=== PATIENT | male | born 1955 | race Caucasian/White ===

== ENCOUNTER 2021-01-03 08:37 | Emergency (ER) | payer MEDICARE, OTHER ==
[2021-01-03 09:34] LABS: HEMOGLOBIN 15.8 gm/dl (14.0-17.5); RED BLOOD COUNT 5.08 M/UL (4.20-5.50); WHITE BLOOD COUNT 8.2 K/UL (4.5-11.0)
== END 2021-01-03 12:12 | disposition home or self-care (01) ==
LOC: ER1 08:37
PROVIDERS: Preventive Medicine Occupational Medicine
DX: E04.1 Nontoxic single thyroid nodule (principal); I10 Essential (primary) hypertension; E11.9 Type 2 diabetes mellitus without complications
CPT/HCPCS: 70491; 71045; 80053; 84439; 84443; 85025; 85652; 86140; 99284; Q9967

== ENCOUNTER → 2021-02-27 | Outpatient (CLI) | payer MEDICARE, OTHER ==
[2021-02-27 09:32] LABS: HEMOGLOBIN 14.7 gm/dl (14.0-17.5); RED BLOOD COUNT 4.68 M/UL (4.20-5.50); WHITE BLOOD COUNT 7.3 K/UL (4.5-11.0)
== END ==
LOC: US 09:00
PROVIDERS: Otolaryngology
DX: D44.0 Neoplasm of uncertain behavior of thyroid gland (principal)
CPT/HCPCS: 36415; 85027; 85610; 85730

== ENCOUNTER → 2021-06-20 | Outpatient (CLI) | payer MEDICARE, OTHER | LOC: KOH-I 06-13 13:00 | DX: D34 Benign neoplasm of thyroid gland (principal); E07.9 Disorder of thyroid, unspecified; E04.1 Nontoxic single thyroid nodule | CPT/HCPCS: 76536 ==